=== PATIENT | male | born 1980 | race Caucasian/White ===

== ENCOUNTER 2017-03-08 13:30 | Emergency (ER) | payer MEDICAID ==
[2017-03-08 13:35] VITALS: BP 167/104; PULSE 89; RESP 18; TEMP 97.9; O2SAT 92
[2017-03-08] MEDS ORDERED: DEXAMETHASONE 2 MG TAB PO ONE (13:52)
--- NOTE | 2017-03-08 13:54 | EDPHY ---
H & P Time Seen by Provider: 03/08/17 13:32 HPI/ROS: CHIEF COMPLAINT: Sore throat HISTORY OF PRESENT ILLNESS: Patient started getting a sore throat on morning. On he slept in a trailer outside the house he is renovating and the propane ran out. It was very cold and he thinks that sleeping in the cold might have given him a sore throat. Symptoms persist and over the last day and half he has lost his voice and become worse. Little bit of a cough but not short of breath and no sputum or fever. REVIEW OF SYSTEMS: Able to drink and swallow. Hurts a little bit when he coughs. Bilateral ear fullness, no dental symptoms. Bloody nose. PAST MEDICAL HISTORY: Negative Social history: As in HPI, smoker General Appearance: Alert and conversant, cooperative. Normal tympanic membranes bilaterally. No redness or retraction and no fluid behind the eardrum. No facial swelling or tenderness. No acute nose bleeding. No trismus, and no gum swelling. Uvula midline and no tonsillar swelling or exudate. No stridor or drooling. He has lost his voice a little bit. Speaks in full sentences, no respiratory distress, lungs clear to auscultation bilaterally. Emergency Department course/MDM: I think strep throat or retropharyngeal abscess or epiglottitis are all unlikely. Does not appear to have dental infection or otitis media. Risk benefit alternatives of dexamethasone discussed and consented. Symptomatic treatment, ENT follow-up in 2 days if not improving. Smoking Status: Current some day smoker Constitutional: Initial Vital Signs Temperature (C) 36.6 C 03/08/17 13:33 Heart Rate 89 03/08/17 13:33 Respiratory Rate 18 03/08/17 13:33 Blood Pressure 167/104 H 03/08/17 13:33 O2 Sat (%) 92 03/08/17 13:33 O2 Delivery Mode Room Air Allergies/Adverse Reactions: No Known Allergies Allergy (Unverified 03/08/17 13:36) Home Medications: Medication Instructions Recorded NK [No Known Home Meds] 03/08/17 MDM/Departure - MDM Medications Given: Discontinued Medications Dexamethasone (Dexamethasone) 8 mg PO EDNOW ONE Stop: 03/08/17 13:53 Last Admin: 03/08/17 14:00 Dose: 8 mg - Depart Disposition: Home, Routine, Self-Care Clinical Impression: Acute pharyngitis Qualifiers: Pharyngitis/tonsillitis etiology: other specified organisms Qualified Code(s): J02.8 - Acute pharyngitis due to other specified organisms Condition: Good Instructions: Pharyngitis (ED) Referrals: Ally Shane MD [Medical Doctor] - 2-3 days, if not improved
[2017-03-08] MEDS ORDERED: DEXAMETHASONE 4 MG TAB ONE (13:59)
== END 2017-03-08 14:03 | disposition home or self-care (01) ==
DX: J02.9 Acute pharyngitis, unspecified (principal); F17.200 Nicotine dependence, unspecified, uncomplicated